=== PATIENT | female | born 1970 | race Caucasian/White ===

== ENCOUNTER 2017-03-15 11:15 | Emergency (ER) | payer MEDICAID ==
[~2017-03-15] VITALS: Ht 167.6 cm; Wt 121.9 kg
[2017-03-15] MEDS ORDERED: FAMOTIDINE 20 MG/2 ML IVP ONE (13:00)
[2017-03-15] MEDS ORDERED: SODIUM CHLORIDE 0.9% 1,000ML IVBOLUS ONE (13:00)
[2017-03-15] MEDS ORDERED: SODIUM CHLORIDE FLUSH 10ML SYR IVF ONE (13:00)
[2017-03-15] MEDS ORDERED: MORPHINE SULFATE 4 MG/ML, 1ML IVPush PRN (13:00)
[2017-03-15] MEDS ORDERED: ONDANSETRON 2MG/ML, 2ML IVPush ONE (13:00)
[2017-03-15] MEDS ORDERED: ONDANSETRON 2MG/ML, 2ML ONE (13:13)
[2017-03-15] MEDS ORDERED: FAMOTIDINE 20 MG/2 ML ONE (13:13)
[2017-03-15] MEDS ORDERED: MORPHINE SULFATE 4 MG/ML, 1ML ONE (13:13)
[2017-03-15 13:17] LABS: PATH.CAST-FLAG NOT PRESENT; SPERM-FLAG NOT PRESENT; SRC-FLAG NOT PRESENT; XTAL-FLAG NOT PRESENT; YLC-FLAG NOT PRESENT
[2017-03-15 13:20] LABS: ASPARTATE AMINO TRANSFERASE 13 U/L (15-37); BLOOD UREA NITROGEN 10 mg/dL (7-18)
[2017-03-15 14:28] VITALS: BP 131/66
== END 2017-03-15 14:31 | disposition home or self-care (01) ==
LOC: ED 13:14
DX: K52.9 Noninfective gastroenteritis and colitis, unspecified (principal); R10.84 Generalized abdominal pain; E11.9 Type 2 diabetes mellitus without complications; Z88.6 Allergy status to analgesic agent; Z88.8 Allergy status to other drugs, medicaments and biological substances
CPT/HCPCS: 36415; 76700; 80053; 81001; 83690; 84703; 85025; 85610; 87324; 89055; 96361; 96374; 96375; 99285; J2405; J7030; S0028

== ENCOUNTER 2017-03-31 16:42 | Inpatient (IN) | payer MEDICAID ==
[~2017-03-31] VITALS: Ht 167.6 cm; Wt 118.6 kg
[2017-03-31] MEDS ORDERED: ACETAMINOPHEN 500 MG TABLET ONE (17:42)
[2017-03-31] MEDS ORDERED: ONDANSETRON 2MG/ML, 2ML ONE ×2 (17:42→20:32)
[2017-03-31] MEDS ORDERED: MORPHINE SULFATE 4 MG/ML, 1ML ONE (17:46)
[2017-03-31] MEDS ORDERED: OMEP40CA6 PO (17:56)
[2017-03-31] MEDS ORDERED: NPH,100V4 SQ (17:56)
[2017-03-31] MEDS ORDERED: ESTR25PO42 PO (17:56)
[2017-03-31] MEDS ORDERED: DICY10CA3 PO (17:56)
[2017-03-31] MEDS ORDERED: ATOR80TA75 PO (17:56)
[2017-03-31] MEDS ORDERED: HYDR25TA6 PO (17:56)
[2017-03-31] MEDS ORDERED: POTA10PI2 PO (17:56)
[2017-03-31] MEDS ORDERED: SODIUM CHLORIDE 0.9% 1,000ML IVBOLUS ONE ×3 (18:00→20:00)
[2017-03-31] MEDS ORDERED: OMNIPAQUE 350 MG/ML, 100ML BOTTLE ONE (18:00)
[2017-03-31] MEDS ORDERED: ACETAMINOPHEN 500 MG TABLET PO ONE (18:00)
[2017-03-31] MEDS ORDERED: ONDANSETRON 2MG/ML, 2ML IVPush ONE (18:00)
[2017-03-31] MEDS ORDERED: SODIUM CHLORIDE FLUSH 10ML SYR IVF ONE (18:00)
[2017-03-31] MEDS ORDERED: MORPHINE SULFATE 4 MG/ML, 1ML IVPush PRN (18:00)
[2017-03-31 18:14] LABS: BLOOD UREA NITROGEN 12 mg/dL (7-18)
[2017-03-31 18:17] LABS: ASPARTATE AMINO TRANSFERASE 11 U/L (15-37)
[2017-03-31] MEDS ORDERED: SODIUM CHLORIDE 0.9% 1,000 ML IV ONE (21:37)
[2017-03-31] MEDS ORDERED: METRONIDAZOLE PMX 500MG/100ML 100 ML IV ONE (22:00)
[2017-03-31] MEDS ORDERED: ONDANSETRON 2MG/ML, 2ML IVPush PRN (22:00)
[2017-03-31] MEDS: METRONIDAZOLE PMX 500MG/100ML 100 ML IV SCH (22:30)
[2017-03-31] MEDS ORDERED: ENALAPRILAT 1.25 MG/ML, 2ML IVPush PRN (22:30)
[2017-03-31] MEDS ORDERED: ACETAMINOPHEN 325 MG TABLET PO PRN (22:30)
[2017-03-31] MEDS ORDERED: POLYETHYLENE GLYCOL 17 GM PACKET PO PRN (22:30)
[2017-03-31] MEDS ORDERED: BISACODYL 10 MG SUPP PR PRN (22:30)
[2017-03-31] MEDS ORDERED: TEMAZEPAM 15 MG CAPSULE PO PRN (22:30)
[2017-03-31] MEDS ORDERED: DOCUSATE 100 MG CAPSULE PO PRN (22:30)
[2017-03-31 23:24] VITALS: BP 101/54
[2017-03-31] MEDS: SODIUM CHLORIDE 0.9% 1,000 ML IV SCH (23:40)
[2017-03-31] MEDS: ONDANSETRON 2MG/ML, 2ML IVPush PRN (23:40)
[2017-04-01] MEDS: HEPARIN 5,000 UNITS/ML, 1ML SQ SCH ×4 (02:05→23:23)
[2017-04-01] MEDS: VANCOMYCIN 50 MG/ML ORAL SUSP PO SCH ×4 (02:20→20:33)
[2017-04-01 02:24] VITALS: BP 119/71
[2017-04-01 05:03] LABS: BLOOD UREA NITROGEN 9 mg/dL (7-18)
[2017-04-01 05:09] LABS: ASPARTATE AMINO TRANSFERASE 10 U/L (15-37)
[2017-04-01 05:46] LABS: DIFF TOTAL CELLS COUNTED 100 CELL DIFF
[2017-04-01] MEDS: SODIUM CHLORIDE 0.9% 1,000 ML IV SCH (05:48)
[2017-04-01 05:58] LABS: VERIFY COUNTS? YES
[2017-04-01] MEDS: METRONIDAZOLE PMX 500MG/100ML 100 ML IV SCH ×3 (06:42→23:22)
[2017-04-01 06:56] VITALS: BP 122/74
[2017-04-01] MEDS: INSULIN ASPART 100 UNITS/ML, PEN SQ-INSULIN SCH ×4 (07:00→20:36)
[2017-04-01] MEDS: HYDROCHLOROTHIAZIDE 25 MG TABLET PO SCH (08:41)
[2017-04-01] MEDS ORDERED: MAGNESIUM SULFATE PMX 2GM/50ML 50 ML IV ONE (09:30)
[2017-04-01] MEDS ORDERED: NS + 20MEQ KCL 1,000 ML IV SCH (09:30)
[2017-04-01 12:57] VITALS: BP 110/71
[2017-04-01] MEDS: morphine SULFATE 10 MG/ML, 1ML IVPush PRN (14:51)
[2017-04-01 19:02] VITALS: BP 117/70
[2017-04-01] MEDS: ONDANSETRON 2MG/ML, 2ML IVPush PRN (20:31)
[2017-04-01] MEDS: OXYcodone IR 5MG TABLET PO PRN (20:33)
[2017-04-01] MEDS: ATORVASTATIN 20 MG TABLET PO SCH (20:33)
[2017-04-01] MEDS: NS + 20MEQ KCL 1,000 ML IV SCH (23:23)
[2017-04-02 01:53] VITALS: BP 116/73
[2017-04-02] MEDS: VANCOMYCIN 50 MG/ML ORAL SUSP PO SCH ×4 (02:50→20:26)
[2017-04-02] MEDS: ONDANSETRON 2MG/ML, 2ML IVPush PRN (04:53)
[2017-04-02] MEDS ORDERED: MORPHINE SULFATE 4 MG/ML, 1ML ONE (05:11)
[2017-04-02] MEDS: morphine SULFATE 10 MG/ML, 1ML IVPush PRN ×2 (05:16→13:13)
[2017-04-02 05:58] LABS: ASPARTATE AMINO TRANSFERASE 9 U/L (15-37); BLOOD UREA NITROGEN 5 mg/dL (7-18)
[2017-04-02 07:05] VITALS: BP 104/66
[2017-04-02] MEDS: METRONIDAZOLE PMX 500MG/100ML 100 ML IV SCH ×3 (08:31→23:58)
[2017-04-02] MEDS: HEPARIN 5,000 UNITS/ML, 1ML SQ SCH ×3 (08:31→23:58)
[2017-04-02] MEDS: HYDROCHLOROTHIAZIDE 25 MG TABLET PO SCH (08:31)
[2017-04-02] MEDS: INSULIN ASPART 100 UNITS/ML, PEN SQ-INSULIN SCH ×4 (09:11→20:01)
[2017-04-02 13:05] VITALS: BP 111/76
[2017-04-02] MEDS: NS + 20MEQ KCL 1,000 ML IV SCH (13:41)
[2017-04-02] MEDS ORDERED: POTASSIUM CHLORIDE 20 MEQ TAB.ER.PRT PO ONE (14:30)
[2017-04-02] MEDS ORDERED: PROMETHAZINE 25MG TABLET PO PRN (14:30)
[2017-04-02] MEDS ORDERED: MAGNESIUM SULFATE PMX 2GM/50ML 50 ML IV ONE (14:30)
[2017-04-02] MEDS: ONDANSETRON 2MG/ML, 2ML IVPush SCH ×3 (16:42→23:56)
[2017-04-02] MEDS: OXYcodone IR 5MG TABLET PO PRN (19:39)
[2017-04-02 20:00] VITALS: BP 123/70
[2017-04-02] MEDS: ATORVASTATIN 20 MG TABLET PO SCH (20:26)
[2017-04-03] MEDS ORDERED: MORPHINE SULFATE 4 MG/ML, 1ML ONE ×2 (01:23→20:38)
[2017-04-03 02:00] VITALS: BP 107/67
[2017-04-03] MEDS: morphine SULFATE 10 MG/ML, 1ML IVPush PRN ×4 (02:30→20:48)
[2017-04-03] MEDS: VANCOMYCIN 50 MG/ML ORAL SUSP PO SCH ×4 (03:17→20:47)
[2017-04-03] MEDS: NS + 20MEQ KCL 1,000 ML IV SCH ×2 (03:17→23:00)
[2017-04-03] MEDS: ONDANSETRON 2MG/ML, 2ML IVPush SCH ×4 (04:53→21:37)
[2017-04-03 05:49] LABS: BLOOD UREA NITROGEN 4 mg/dL (7-18)
[2017-04-03 08:09] VITALS: BP 134/73
[2017-04-03] MEDS: HEPARIN 5,000 UNITS/ML, 1ML SQ SCH ×2 (08:18→15:12)
[2017-04-03] MEDS: HYDROCHLOROTHIAZIDE 25 MG TABLET PO SCH (08:18)
[2017-04-03] MEDS: METRONIDAZOLE PMX 500MG/100ML 100 ML IV SCH ×2 (08:18→17:13)
[2017-04-03] MEDS: INSULIN ASPART 100 UNITS/ML, PEN SQ-INSULIN SCH ×4 (08:19→21:37)
[2017-04-03] MEDS ORDERED: POTASSIUM CHLORIDE 40 MEQ in SODIUM CHLORIDE 0.9% 500 ML IV ONE (10:30)
[2017-04-03 13:34] VITALS: BP 117/75
[2017-04-03 19:19] VITALS: BP 114/71
[2017-04-03] MEDS: ATORVASTATIN 20 MG TABLET PO SCH (20:47)
[2017-04-04 02:00] VITALS: BP 107/68
[2017-04-04] MEDS ORDERED: MORPHINE SULFATE 4 MG/ML, 1ML ONE (02:55)
[2017-04-04] MEDS: ONDANSETRON 2MG/ML, 2ML IVPush SCH ×4 (03:05→22:30)
[2017-04-04] MEDS: morphine SULFATE 10 MG/ML, 1ML IVPush PRN ×2 (03:05→17:25)
[2017-04-04] MEDS: HEPARIN 5,000 UNITS/ML, 1ML SQ SCH ×3 (03:05→20:56)
[2017-04-04] MEDS: METRONIDAZOLE PMX 500MG/100ML 100 ML IV SCH ×3 (03:05→19:06)
[2017-04-04] MEDS: VANCOMYCIN 50 MG/ML ORAL SUSP PO SCH ×4 (03:05→20:56)
[2017-04-04 06:01] LABS: BLOOD UREA NITROGEN 5 mg/dL (7-18)
[2017-04-04 06:05] LABS: ASPARTATE AMINO TRANSFERASE 27 U/L (15-37)
[2017-04-04 07:37] VITALS: BP 124/75
[2017-04-04] MEDS: INSULIN ASPART 100 UNITS/ML, PEN SQ-INSULIN SCH ×4 (08:24→20:57)
[2017-04-04] MEDS: HYDROCHLOROTHIAZIDE 25 MG TABLET PO SCH (09:04)
[2017-04-04] MEDS ORDERED: MAGNESIUM SULFATE PMX 2GM/50ML 50 ML IV ONE (10:30)
[2017-04-04] MEDS ORDERED: POTASSIUM CHLORIDE 40 MEQ in SODIUM CHLORIDE 0.9% 500 ML IV ONE (10:30)
[2017-04-04] MEDS: INSULIN DETEMIR 100 UNITS/ML, PEN SQ-INSULIN SCH (11:56)
[2017-04-04 13:35] VITALS: BP 126/81
[2017-04-04] MEDS: OXYcodone IR 5MG TABLET PO PRN ×2 (18:37→19:14)
[2017-04-04 19:14] VITALS: BP 130/65
[2017-04-04] MEDS: ATORVASTATIN 20 MG TABLET PO SCH (20:56)
[2017-04-05 02:00] VITALS: BP 124/78
[2017-04-05] MEDS: HEPARIN 5,000 UNITS/ML, 1ML SQ SCH ×3 (02:27→17:30)
[2017-04-05] MEDS ORDERED: MORPHINE SULFATE 4 MG/ML, 1ML ONE (02:28)
[2017-04-05] MEDS: METRONIDAZOLE PMX 500MG/100ML 100 ML IV SCH ×3 (02:33→17:30)
[2017-04-05] MEDS: VANCOMYCIN 50 MG/ML ORAL SUSP PO SCH ×4 (02:33→20:30)
[2017-04-05] MEDS: ONDANSETRON 2MG/ML, 2ML IVPush SCH ×4 (02:34→20:30)
[2017-04-05] MEDS: morphine SULFATE 10 MG/ML, 1ML IVPush PRN (02:34)
[2017-04-05 05:41] LABS: BLOOD UREA NITROGEN 5 mg/dL (7-18)
[2017-04-05 07:29] VITALS: BP 113/72
[2017-04-05] MEDS: HYDROCHLOROTHIAZIDE 25 MG TABLET PO SCH (09:02)
[2017-04-05] MEDS: INSULIN DETEMIR 100 UNITS/ML, PEN SQ-INSULIN SCH (09:02)
[2017-04-05] MEDS: INSULIN ASPART 100 UNITS/ML, PEN SQ-INSULIN SCH ×4 (09:03→20:30)
[2017-04-05 13:50] VITALS: BP 132/70
[2017-04-05] MEDS: OXYcodone IR 5MG TABLET PO PRN (15:02)
[2017-04-05] MEDS ORDERED: MAGNESIUM SULFATE PMX 2GM/50ML 50 ML IV ONE (17:30)
[2017-04-05] MEDS: POTASSIUM CHLORIDE 40 MEQ in SODIUM CHLORIDE 0.9% 500 ML IV ONE ×2 (18:17→23:22)
[2017-04-05 19:18] VITALS: BP 108/68
[2017-04-05] MEDS: ATORVASTATIN 20 MG TABLET PO SCH (20:30)
[2017-04-06] MEDS: METRONIDAZOLE PMX 500MG/100ML 100 ML IV SCH ×3 (01:39→16:39)
[2017-04-06 02:29] VITALS: BP 130/81
[2017-04-06] MEDS: VANCOMYCIN 50 MG/ML ORAL SUSP PO SCH ×4 (03:41→21:31)
[2017-04-06] MEDS: HEPARIN 5,000 UNITS/ML, 1ML SQ SCH ×3 (03:41→17:58)
[2017-04-06] MEDS: ONDANSETRON 2MG/ML, 2ML IVPush SCH ×4 (03:42→21:31)
[2017-04-06 05:29] LABS: BLOOD UREA NITROGEN 6 mg/dL (7-18)
[2017-04-06 07:36] VITALS: BP 125/76
[2017-04-06] MEDS: HYDROCHLOROTHIAZIDE 25 MG TABLET PO SCH (08:05)
[2017-04-06] MEDS: INSULIN DETEMIR 100 UNITS/ML, PEN SQ-INSULIN SCH (08:06)
[2017-04-06] MEDS: INSULIN ASPART 100 UNITS/ML, PEN SQ-INSULIN SCH ×4 (08:06→21:32)
[2017-04-06] MEDS ORDERED: MORPHINE SULFATE 4 MG/ML, 1ML ONE ×2 (08:12→11:21)
[2017-04-06] MEDS: morphine SULFATE 10 MG/ML, 1ML IVPush PRN ×2 (08:14→11:24)
[2017-04-06] MEDS: OXYcodone IR 5MG TABLET PO PRN ×3 (10:36→21:38)
[2017-04-06 14:30] VITALS: BP 117/70
[2017-04-06] MEDS ORDERED: OMNIPAQUE 350 MG/ML, 150 ML BOTTLE ONE (15:00)
[2017-04-06 19:51] VITALS: BP 116/73
[2017-04-06] MEDS: ATORVASTATIN 20 MG TABLET PO SCH (21:31)
[2017-04-07] MEDS ORDERED: MORPHINE SULFATE 4 MG/ML, 1ML ONE (00:58)
[2017-04-07] MEDS: morphine SULFATE 10 MG/ML, 1ML IVPush PRN (01:03)
[2017-04-07] MEDS: METRONIDAZOLE PMX 500MG/100ML 100 ML IV SCH ×3 (01:07→17:04)
[2017-04-07 01:09] VITALS: BP 129/76
[2017-04-07] MEDS: ONDANSETRON 2MG/ML, 2ML IVPush SCH ×4 (03:37→20:32)
[2017-04-07] MEDS: VANCOMYCIN 50 MG/ML ORAL SUSP PO SCH ×4 (03:37→20:32)
[2017-04-07] MEDS: HEPARIN 5,000 UNITS/ML, 1ML SQ SCH ×3 (03:38→17:40)
[2017-04-07 06:08] LABS: BLOOD UREA NITROGEN 7 mg/dL (7-18)
[2017-04-07 08:00] VITALS: BP 120/74
[2017-04-07] MEDS: HYDROCHLOROTHIAZIDE 25 MG TABLET PO SCH (08:40)
[2017-04-07] MEDS: INSULIN ASPART 100 UNITS/ML, PEN SQ-INSULIN SCH ×4 (08:41→20:32)
[2017-04-07] MEDS: INSULIN DETEMIR 100 UNITS/ML, PEN SQ-INSULIN SCH (08:42)
[2017-04-07] MEDS: OXYcodone IR 5MG TABLET PO PRN (11:36)
[2017-04-07 16:00] VITALS: BP 112/74
[2017-04-07 18:54] VITALS: BP 116/77
[2017-04-07] MEDS: ATORVASTATIN 20 MG TABLET PO SCH (20:32)
[2017-04-08 02:03] VITALS: BP 123/82
[2017-04-08] MEDS: VANCOMYCIN 50 MG/ML ORAL SUSP PO SCH ×2 (02:04→08:17)
[2017-04-08] MEDS: METRONIDAZOLE PMX 500MG/100ML 100 ML IV SCH ×2 (02:04→10:35)
[2017-04-08] MEDS: ONDANSETRON 2MG/ML, 2ML IVPush SCH ×2 (02:04→08:17)
[2017-04-08] MEDS: HEPARIN 5,000 UNITS/ML, 1ML SQ SCH ×2 (02:04→10:35)
[2017-04-08 07:44] VITALS: BP 119/79
[2017-04-08] MEDS: INSULIN ASPART 100 UNITS/ML, PEN SQ-INSULIN SCH ×2 (08:17→12:13)
[2017-04-08] MEDS: HYDROCHLOROTHIAZIDE 25 MG TABLET PO SCH (08:17)
[2017-04-08] MEDS: INSULIN DETEMIR 100 UNITS/ML, PEN SQ-INSULIN SCH (08:17)
[2017-04-08] MEDS ORDERED: OMEPRAZOLE 20 MG CAPSULE.DR PO SCH (08:30)
[2017-04-08] MEDS ORDERED: VANC1VIA3 PO (10:04)
[2017-04-08] MEDS ORDERED: OXYC5TAB3 PO (10:04)
[2017-04-08] MEDS ORDERED: SUCRALFATE 1 GM/10 ML UDC PO SCH (11:00)
== END 2017-04-08 13:06 | disposition home or self-care (01) | DRG 872 ==
LOC: ED 18:11 → EDIP 21:37 → 4EST 22:32
PROVIDERS: ADMIT Internal Medicine; ATTEND Internal Medicine
DX: A41.9 Sepsis, unspecified organism (principal); A04.7 Enterocolitis due to Clostridium difficile; Z68.41 Body mass index [BMI] 40.0-44.9, adult; E11.9 Type 2 diabetes mellitus without complications; E78.5 Hyperlipidemia, unspecified; E83.42 Hypomagnesemia; E87.6 Hypokalemia; H81.09 Meniere's disease, unspecified ear; I10 Essential (primary) hypertension; K21.9 Gastro-esophageal reflux disease without esophagitis; K76.0 Fatty (change of) liver, not elsewhere classified; M51.36 Other intervertebral disc degeneration, lumbar region; E66.01 Morbid (severe) obesity due to excess calories; R16.0 Hepatomegaly, not elsewhere classified; Z90.710 Acquired absence of both cervix and uterus; Z83.1 Family history of other infectious and parasitic diseases; Z88.6 Allergy status to analgesic agent; Z88.8 Allergy status to other drugs, medicaments and biological substances; Z79.4 Long term (current) use of insulin; Z79.899 Other long term (current) drug therapy
CPT/HCPCS: 36415; 74177; 80048; 80053; 80061; 81003; 82010; 82962; 83036; 83605; 83690; 83735; 84100; 84145; 84439; 84443; 85025; 87040; 87324; 89055; 96361; 96374; J1644; J1815; J2405; J3370; J3480; Q0169; Q9967; J2270; J3475; J7030; J7040

== ENCOUNTER 2017-04-17 19:11 | Emergency (ER) | payer MEDICAID ==
[~2017-04-17] VITALS: Ht 182.9 cm; Wt 117.9 kg
[~2017-04-17 19:11] MED LIST: ATOR80TA75 PO; DICY10CA3 PO; ESTR25PO42 PO; HYDR25TA6 PO; NPH,100V4 SQ; OMEP40CA6 PO; OXYC5TAB3 PO; POTA10PI2 PO; VANC1VIA3 PO
[2017-04-17] MEDS ORDERED: SODIUM CHLORIDE 0.9% 1,000ML IVBOLUS ONE (20:00)
[2017-04-17] MEDS ORDERED: SODIUM CHLORIDE FLUSH 10ML SYR IVF ONE (20:00)
[2017-04-17] MEDS ORDERED: ONDANSETRON 2MG/ML, 2ML IVPush ONE (20:00)
[2017-04-17] MEDS ORDERED: ALBU18HF INH (20:10)
[2017-04-17] MEDS ORDERED: DICY10CA3 PO (20:10)
[2017-04-17] MEDS ORDERED: MORPHINE SULFATE 4 MG/ML, 1ML ONE (20:15)
[2017-04-17] MEDS ORDERED: ONDANSETRON 2MG/ML, 2ML ONE (20:16)
[2017-04-17] MEDS ORDERED: MORPHINE SULFATE 4 MG/ML, 1ML IVPush ONE (20:30)
[2017-04-17 20:58] LABS: ASPARTATE AMINO TRANSFERASE 23 U/L (15-37); BLOOD UREA NITROGEN 14 mg/dL (7-18)
[2017-04-17 22:05] VITALS: BP 113/64
== END 2017-04-17 22:19 | disposition home or self-care (01) ==
LOC: ED 22:17
DX: R19.7 Diarrhea, unspecified (principal); R10.84 Generalized abdominal pain; Z88.8 Allergy status to other drugs, medicaments and biological substances; E78.5 Hyperlipidemia, unspecified; I10 Essential (primary) hypertension; J45.909 Unspecified asthma, uncomplicated; E11.9 Type 2 diabetes mellitus without complications; Z79.899 Other long term (current) drug therapy; Z79.4 Long term (current) use of insulin; K21.9 Gastro-esophageal reflux disease without esophagitis
CPT/HCPCS: 36415; 80053; 81003; 83605; 83690; 85025; 87040; 87324; 89055; 96374; 96375; 99284; J2405; J7030; 96361

== ENCOUNTER 2018-05-08 10:40 | Emergency (ER) | payer MEDICAID, OTHER ==
[~2018-05-08] VITALS: Ht 167.6 cm; Wt 136.0 kg
[~2018-05-08 10:40] MED LIST changes: +ALBU18HF INH; +ATOR-2 PO; -ATOR80TA75 PO; -NPH,100V4 SQ; +NPH,100V5 SQ
[2018-05-08] MEDS ORDERED: ONDANSETRON 2MG/ML, 2ML ONE (11:17)
[2018-05-08] MEDS ORDERED: DIAZEPAM 5 MG TABLET ONE (11:18)
[2018-05-08] MEDS ORDERED: MORPHINE SULFATE 4 MG/ML, 1ML ONE (11:18)
[2018-05-08] MEDS ORDERED: ONDANSETRON 2MG/ML, 2ML IVPush ONE (11:30)
[2018-05-08] MEDS ORDERED: SODIUM CHLORIDE FLUSH 10ML SYR IVF ONE (11:30)
[2018-05-08] MEDS ORDERED: DIAZEPAM 5 MG/ML, 2ML IVPush ONE (11:30)
[2018-05-08] MEDS ORDERED: MORPHINE SULFATE 4 MG/ML, 1ML IVPush PRN (11:30)
[2018-05-08] MEDS ORDERED: DIAZEPAM 5 MG TABLET PO ONE (13:00)
[2018-05-08 13:16] VITALS: BP 114/55
== END 2018-05-08 13:21 | disposition home or self-care (01) ==
LOC: ED 12:54
DX: S39.012A Strain of muscle, fascia and tendon of lower back, initial encounter (principal); I10 Essential (primary) hypertension; E11.9 Type 2 diabetes mellitus without complications; X58.XXXA Exposure to other specified factors, initial encounter; Y93.89 Activity, other specified; Y99.8 Other external cause status; Y92.89 Other specified places as the place of occurrence of the external cause
CPT/HCPCS: 72110; 96374; 96375; 99284; J2405

== ENCOUNTER 2018-07-13 12:12 | Emergency (ER) | payer OTHER ==
[~2018-07-13] VITALS: Ht 167.6 cm; Wt 131.8 kg
[2018-07-13 12:19] VITALS: BP 157/87
[2018-07-13] MEDS ORDERED: OXYcodone/APAP 5/325MG TABLET ONE (13:00)
[2018-07-13] MEDS ORDERED: KETOROLAC 30 MG/1 ML ONE (13:00)
[2018-07-13] MEDS ORDERED: OXYcodone/APAP 5/325MG TABLET PO ONE (13:00)
[2018-07-13] MEDS ORDERED: KETOROLAC 30 MG/1 ML IM ONE (13:00)
== END 2018-07-13 13:17 | disposition home or self-care (01) ==
LOC: ED 13:10
DX: M75.32 Calcific tendinitis of left shoulder (principal); E78.5 Hyperlipidemia, unspecified; E11.9 Type 2 diabetes mellitus without complications; J45.909 Unspecified asthma, uncomplicated
CPT/HCPCS: 96372; 99283; J1885

== ENCOUNTER → 2018-10-08 | Outpatient (CLI) | payer OTHER | END | disposition home or self-care (01) | LOC: RAD 07:25 | PROVIDERS: ATTEND Physician Assistant Surgical | DX: S83.241A Other tear of medial meniscus, current injury, right knee, initial encounter (principal); M25.461 Effusion, right knee; X58.XXXA Exposure to other specified factors, initial encounter; Y93.89 Activity, other specified; Y92.89 Other specified places as the place of occurrence of the external cause; Y99.8 Other external cause status ==

== ENCOUNTER 2019-04-09 10:01 | Inpatient (IN) | payer OTHER ==
[~2019-04-09] VITALS: Ht 170.2 cm; Wt 137.2 kg
--- NOTE | 2019-04-09 10:34 | NUR ---
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
[2019-04-09 11:15] LABS: BASOPHILS % (AUTO) 0 % (0-1); EOSINOPHILS # (AUTO) 0.03 x10^3/uL (0-0.4); EOSINOPHILS % (AUTO) 0 % (1-7); LYMPHOCYTES # (AUTO) 1.32 x10^3/uL (1-3.4); LYMPHOCYTES % (AUTO) 15 % (22-44); MD NO; MEAN CORPUSCULAR HEMOGLOBIN 29.7 pg (27.0-34.8); MEAN CORPUSCULAR HGB CONC 32.5 g/dL (32.4-35.8); MEAN CORPUSCULAR VOLUME 91.5 fL (80-100); MEAN PLATELET VOLUME 7.7 fL (7.4-10.4); MONOCYTES # (AUTO) 0.31 x10^3/uL (0.2-0.8); MONOCYTES % (AUTO) 4 % (2-9); NEUTROPHILS # (AUTO) 7.29 x10^3/uL (1.8-6.8); NEUTROPHILS % (AUTO) 81 % (42-75); PLATELET COUNT 275 x10^3/uL (130-400); RED BLOOD COUNT 4.72 x10^6/uL (3.82-5.3); RED CELL DISTRIBUTION WIDTH 13.6 % (9.6-15.2)
[2019-04-09 11:28] LABS: CHLORIDE 105 mmol/L (98-107)
--- NOTE | 2019-04-09 12:00 | NUR ---
PT REPORTS SOB THAT STARTED 04/03 AND GOT BETTER OVER THE FOLLOWING DAYS THEN WORSE ON 04/08. PT WENT TO PRIMARY CARE AND REVIECED A NEB TREATMENT WHICH MADE HER BREATHING BETTER BUT ONLY FOR A SHORT PERIOD OF TIME. PT REPORTS SHE WOKE UP THIS MORNING AT 3AM AND HAD COUGHING. SHE TOOK A PUFF OF HER INHALER WHICH DID NOT HELP. SHE WENT TO URGENT CARE WHERE SHE RECIEVED A SHOT OF PREDNISONE WHICH ALSO DID NOT HELP. UC SENT HER TO EMERGENCY WHERE SHE CONTINUES TO HAVE SHORTNESS OF BREATH.
[2019-04-09 12:11] LABS: ALANINE AMINOTRANSFERASE 52 U/L (12-78); ALBUMIN 3.2 g/dL (3.4-5.0); ALKALINE PHOSPHATASE 60 U/L (45-117); ANION GAP 11 mmol/L (5-15); BILIRUBIN,TOTAL 0.4 mg/dL (0.2-1.0); CALCIUM 8.4 mg/dL (8.5-10.1); CREATININE 0.91 mg/dL (0.55-1.02); TOTAL PROTEIN 6.5 g/dL (6.4-8.2)
[2019-04-09] MEDS ORDERED: POTASSIUM PO (12:23)
[2019-04-09] MEDS ORDERED: INSU100I13 SQ (12:23)
[2019-04-09] MEDS ORDERED: INSU100I11 SQ (12:23)
--- NOTE | 2019-04-09 12:51 | NUR ---
PT TO CT
[2019-04-09] MEDS ORDERED: INSULIN LISPRO 100 UNITS/ML, PEN SQ-INSULIN ONE (13:00)
--- NOTE | 2019-04-09 13:08 | NUR ---
WILLIS FROM CT CALLED AND SAID THE PIV INFILTRATED AND SHE WAS NOT ABLE TO COMPLETE THE CT WITH CONTRAST. BOWEND NOTIFIED. HUMALOG INSULIN WAS RECIEVED FROM PHARMACY AT THIS TIME.
--- NOTE | 2019-04-09 13:22 | NUR ---
LOLA EL FIXED IV-HAVE ANOTHER PT NOW, WILL GET THIS ONE NEXT
--- NOTE | 2019-04-09 13:28 | NUR ---
PT GIVEN INSULIN. WILL RECHECK BG. PT'S IV TUBING REPLACED AND CT NOTIFIED OF NEED FOR ANOTHER CT ATTEMPT.
[2019-04-09] MEDS ORDERED: OMNIPAQUE 350 MG/ML, 150 ML BOTTLE ONE (14:18)
[2019-04-09] MEDS ORDERED: AZITHROMYCIN 500 MG in SODIUM CHLORIDE 0.9% 250 ML IV ONE (15:00)
[2019-04-09] MEDS ORDERED: INSULIN REGULAR 100 UNITS/ML, 3ML VIAL IVPush ONE (15:00)
[2019-04-09] MEDS ORDERED: INSULIN LISPRO 100 UNITS/ML, PEN ONE (15:16)
[2019-04-09] MEDS ORDERED: ACETAMINOPHEN 500 MG TABLET ONE (15:18)
[2019-04-09] MEDS ORDERED: ACETAMINOPHEN 500 MG TABLET PO ONE (15:30)
[2019-04-09] MEDS ORDERED: SODIUM CHLORIDE 0.9%, 500ML IVBOLUS ONE (16:00)
[2019-04-09] MEDS ORDERED: ONDANSETRON 2MG/ML, 2ML IVPush PRN (16:30)
[2019-04-09] MEDS ORDERED: ACETAMINOPHEN 325 MG TABLET PO PRN (16:30)
[2019-04-09] MEDS ORDERED: ONDANSETRON ODT 4 MG PO PRN (16:30)
[2019-04-09] MEDS ORDERED: ALBUTEROL SULFATE INH PRN (16:30)
--- NOTE | 2019-04-09 16:38 | NUR ---
REPORT GIVEN TO CANDIS
[2019-04-09 17:20] VITALS: BP 155/88
[2019-04-09] MEDS: SODIUM CHLORIDE 0.9% 1,000 ML IV SCH (17:36)
[2019-04-09] MEDS: HEPARIN 5,000 UNITS/ML, 1ML SQ SCH (18:05)
[2019-04-09] MEDS: CARVEDILOL 6.25 MG TABLET PO SCH (18:05)
[2019-04-09] MEDS: LACTOBACILLUS CHEW TABLET PO SCH (18:05)
[2019-04-09] MEDS: CEFTRIAXONE PMX 2GM/50ML 50 ML IV SCH (18:06)
[2019-04-09 20:09] VITALS: BP 126/75
[2019-04-09] MEDS: INSULIN NPH HUMAN 100 UNIT/ML, 3ML VIAL SQ-INSULIN SCH (20:55)
[2019-04-09] MEDS: ATORVASTATIN 20 MG TABLET PO SCH (20:55)
[2019-04-09] MEDS: POTASSIUM CHLORIDE 10 MEQ TABLET.ER PO SCH (20:55)
[2019-04-09] MEDS: INSULIN LISPRO 100 UNITS/ML, PEN SQ-INSULIN SCH (20:56)
[2019-04-10] MEDS: HEPARIN 5,000 UNITS/ML, 1ML SQ SCH ×3 (01:46→17:54)
[2019-04-10] MEDS: GUAIFENESIN/DM 200-20MG, 10ML UDC PO PRN ×4 (01:46→22:59)
[2019-04-10 02:34] VITALS: BP 127/74
[2019-04-10 05:30] LABS: BASOPHILS # (AUTO) 0.03 x10^3/uL (0-0.1); BASOPHILS % (AUTO) 0 % (0-1); EOSINOPHILS # (AUTO) 0.02 x10^3/uL (0-0.4); EOSINOPHILS % (AUTO) 0 % (1-7); LYMPHOCYTES # (AUTO) 1.98 x10^3/uL (1-3.4); LYMPHOCYTES % (AUTO) 17 % (22-44); MD NO; MEAN CORPUSCULAR HEMOGLOBIN 30.4 pg (27.0-34.8); MEAN CORPUSCULAR HGB CONC 32.8 g/dL (32.4-35.8); MEAN CORPUSCULAR VOLUME 92.5 fL (80-100); MEAN PLATELET VOLUME 7.8 fL (7.4-10.4); MONOCYTES # (AUTO) 1.03 x10^3/uL (0.2-0.8); MONOCYTES % (AUTO) 9 % (2-9); NEUTROPHILS # (AUTO) 8.63 x10^3/uL (1.8-6.8); NEUTROPHILS % (AUTO) 74 % (42-75); PLATELET COUNT 304 x10^3/uL (130-400); RED BLOOD COUNT 4.52 x10^6/uL (3.82-5.3); RED CELL DISTRIBUTION WIDTH 13.9 % (9.6-15.2)
[2019-04-10 05:37] LABS: ANION GAP 7 mmol/L (5-15); CALCIUM 8.2 mg/dL (8.5-10.1); CHLORIDE 106 mmol/L (98-107)
[2019-04-10 05:38] LABS: CREATININE 0.78 mg/dL (0.55-1.02)
[2019-04-10 05:41] LABS: HEMOGLOBIN A1C 8.7 % (4.2-6.3)
[2019-04-10] MEDS: CARVEDILOL 6.25 MG TABLET PO SCH ×2 (05:48→17:53)
[2019-04-10] MEDS: OMEPRAZOLE 20 MG CAPSULE.DR PO SCH (05:48)
[2019-04-10] MEDS: INSULIN LISPRO 100 UNITS/ML, PEN SQ-INSULIN SCH ×4 (06:31→22:57)
[2019-04-10 08:20] VITALS: BP 118/73
[2019-04-10] MEDS: INSULIN GLARGINE 100 UNITS/ML, PEN SQ-INSULIN SCH (09:00)
[2019-04-10] MEDS: POTASSIUM CHLORIDE 10 MEQ TABLET.ER PO SCH ×2 (09:25→22:50)
[2019-04-10] MEDS: LACTOBACILLUS CHEW TABLET PO SCH ×3 (09:25→17:53)
[2019-04-10] MEDS: INSULIN NPH HUMAN 100 UNIT/ML, 3ML VIAL SQ-INSULIN SCH ×2 (09:26→21:00)
[2019-04-10] MEDS: ESTRADIOL 1 MG TABLET PO SCH (09:34)
[2019-04-10] MEDS: SODIUM CHLORIDE 0.9% 1,000 ML IV SCH (11:59)
[2019-04-10 14:49] VITALS: BP 135/71
[2019-04-10] MEDS: CEFTRIAXONE PMX 2GM/50ML 50 ML IV SCH (17:54)
[2019-04-10 19:13] VITALS: BP 127/80
[2019-04-10] MEDS ORDERED: KETOROLAC 30 MG/1 ML IVPush SCH (21:30)
[2019-04-10] MEDS: ATORVASTATIN 20 MG TABLET PO SCH (22:50)
[2019-04-11] MEDS: SODIUM CHLORIDE 0.9% 1,000 ML IV SCH ×2 (02:15→16:43)
[2019-04-11] MEDS: HEPARIN 5,000 UNITS/ML, 1ML SQ SCH ×3 (02:16→17:28)
[2019-04-11 02:22] VITALS: BP 130/76
[2019-04-11 05:47] LABS: BASOPHILS # (AUTO) 0.04 x10^3/uL (0-0.1); BASOPHILS % (AUTO) 1 % (0-1); EOSINOPHILS # (AUTO) 0.21 x10^3/uL (0-0.4); EOSINOPHILS % (AUTO) 3 % (1-7); LYMPHOCYTES # (AUTO) 2.61 x10^3/uL (1-3.4); LYMPHOCYTES % (AUTO) 35 % (22-44); MD NO; MEAN CORPUSCULAR HEMOGLOBIN 30.2 pg (27.0-34.8); MEAN CORPUSCULAR HGB CONC 32.7 g/dL (32.4-35.8); MEAN CORPUSCULAR VOLUME 92.2 fL (80-100); MEAN PLATELET VOLUME 7.8 fL (7.4-10.4); MONOCYTES % (AUTO) 9 % (2-9); NEUTROPHILS # (AUTO) 3.91 x10^3/uL (1.8-6.8); NEUTROPHILS % (AUTO) 52 % (42-75); PLATELET COUNT 251 x10^3/uL (130-400); RED BLOOD COUNT 4.36 x10^6/uL (3.82-5.3)
[2019-04-11] MEDS: OMEPRAZOLE 20 MG CAPSULE.DR PO SCH (06:05)
[2019-04-11] MEDS: CARVEDILOL 6.25 MG TABLET PO SCH ×2 (06:05→17:27)
[2019-04-11 09:24] VITALS: BP 134/72
[2019-04-11] MEDS: INSULIN LISPRO 100 UNITS/ML, PEN SQ-INSULIN SCH ×4 (09:41→21:36)
[2019-04-11] MEDS: LACTOBACILLUS CHEW TABLET PO SCH ×3 (09:42→17:27)
[2019-04-11] MEDS: KETOROLAC 30 MG/1 ML IVPush PRN ×3 (09:42→22:07)
[2019-04-11] MEDS: INSULIN GLARGINE 100 UNITS/ML, PEN SQ-INSULIN SCH (09:42)
[2019-04-11] MEDS: POTASSIUM CHLORIDE 10 MEQ TABLET.ER PO SCH ×2 (09:43→21:37)
[2019-04-11] MEDS: GUAIFENESIN/DM 200-20MG, 10ML UDC PO PRN ×3 (09:46→22:07)
[2019-04-11] MEDS: ESTRADIOL 1 MG TABLET PO SCH (09:49)
[2019-04-11 14:14] VITALS: BP 130/69
[2019-04-11 19:32] VITALS: BP 130/69
[2019-04-11] MEDS: AMOXICILLIN 500 MG CAPSULE PO SCH (21:36)
[2019-04-11] MEDS: ATORVASTATIN 20 MG TABLET PO SCH (21:37)
[2019-04-11] MEDS: DOXYCYCLINE 100MG CAP PO SCH (21:37)
[2019-04-12 00:52] VITALS: BP 129/77
[2019-04-12] MEDS: HEPARIN 5,000 UNITS/ML, 1ML SQ SCH ×2 (01:30→10:36)
[2019-04-12] MEDS: GUAIFENESIN/DM 200-20MG, 10ML UDC PO PRN (04:41)
[2019-04-12] MEDS: KETOROLAC 30 MG/1 ML IVPush PRN (04:41)
[2019-04-12] MEDS: CARVEDILOL 6.25 MG TABLET PO SCH (05:42)
[2019-04-12] MEDS: SODIUM CHLORIDE 0.9% 1,000 ML IV SCH (05:42)
[2019-04-12] MEDS: OMEPRAZOLE 20 MG CAPSULE.DR PO SCH (05:42)
[2019-04-12 07:21] VITALS: BP 127/80
[2019-04-12] MEDS: AMOXICILLIN 500 MG CAPSULE PO SCH (07:54)
[2019-04-12] MEDS: POTASSIUM CHLORIDE 10 MEQ TABLET.ER PO SCH (07:55)
[2019-04-12] MEDS: DOXYCYCLINE 100MG CAP PO SCH (07:55)
[2019-04-12] MEDS: ESTRADIOL 1 MG TABLET PO SCH (07:56)
[2019-04-12] MEDS: LACTOBACILLUS CHEW TABLET PO SCH (07:56)
[2019-04-12] MEDS: INSULIN GLARGINE 100 UNITS/ML, PEN SQ-INSULIN SCH (07:59)
[2019-04-12] MEDS: INSULIN LISPRO 100 UNITS/ML, PEN SQ-INSULIN SCH ×2 (07:59→10:45)
[2019-04-12] MEDS ORDERED: METF850T PO (10:08)
[2019-04-12] MEDS ORDERED: CARV6.2512 PO (10:08)
[2019-04-12] MEDS ORDERED: ACID1TAB7 PO (10:08)
[2019-04-12] MEDS ORDERED: AMOX-291 PO (10:08)
[2019-04-12] MEDS ORDERED: GUAI5SYR PO (10:08)
[2019-04-12] MEDS ORDERED: DOXY100C2 PO (10:08)
[2019-04-12 10:50] VITALS: BP 124/83
[2019-04-12] MEDS ORDERED: metFORMIN 850 MG TABLET PO SCH (17:00)
== END 2019-04-12 12:10 | disposition home or self-care (01) | DRG 871 ==
LOC: ED 12:31 → EDIP 15:45 → 4NOR 17:07 → DCLOUNGE 04-12 11:57
PROVIDERS: ADMIT Internal Medicine; ATTEND Internal Medicine
DX: A41.9 Sepsis, unspecified organism (principal); J15.9 Unspecified bacterial pneumonia; J96.01 Acute respiratory failure with hypoxia; Z68.42 Body mass index [BMI] 45.0-49.9, adult; E11.65 Type 2 diabetes mellitus with hyperglycemia; E66.01 Morbid (severe) obesity due to excess calories; E78.5 Hyperlipidemia, unspecified; G47.30 Sleep apnea, unspecified; H81.09 Meniere's disease, unspecified ear; I10 Essential (primary) hypertension; J45.909 Unspecified asthma, uncomplicated; M19.90 Unspecified osteoarthritis, unspecified site; H92.03 Otalgia, bilateral; K21.9 Gastro-esophageal reflux disease without esophagitis; K76.0 Fatty (change of) liver, not elsewhere classified; R04.0 Epistaxis; Z79.4 Long term (current) use of insulin; Z79.890 Hormone replacement therapy; Z90.710 Acquired absence of both cervix and uterus; Z88.8 Allergy status to other drugs, medicaments and biological substances
CPT/HCPCS: 36415; 36600; 71275; 80048; 80053; 82803; 82962; 83036; 83605; 84145; 84703; 85025; 85379; 87040; 93005; 96372; 99285; G0378; J0456; J0696; J1644; J1815; J1885; Q9967; J7030; J7040; J7050

== ENCOUNTER → 2019-12-08 | Outpatient (CLI) | payer OTHER ==
[~2019-12-08] MED LIST changes: +ACID1TAB7 PO; +AMOX-291 PO; +CARV6.2512 PO; +DOXY100C2 PO; +ESTRODIAL PO; +GUAI5SYR PO; +HYDROCHLOROTH12.5 MG PO; +INSU100I11 SQ; +INSU100I13 SQ; +METF850T PO; +OMEP40CA42 PO; -OMEP40CA6 PO; +PIOG30TA4 PO; +POTASSIUM PO; +SEMA1PEN SQ; +jardiance PO
[2019-12-08 16:33] LABS: ALANINE AMINOTRANSFERASE 27 U/L (12-78); ALBUMIN 3.6 g/dL (3.4-5.0); ANION GAP 8 mmol/L (5-15); CALCIUM 8.2 mg/dL (8.5-10.1); CHLORIDE 106 mmol/L (98-107); CREATININE 0.84 mg/dL (0.55-1.02)
[2019-12-08 16:35] LABS: ALKALINE PHOSPHATASE 76 U/L (45-117); BILIRUBIN,TOTAL 0.4 mg/dL (0.2-1.0); TOTAL PROTEIN 7.1 g/dL (6.4-8.2)
== END | disposition home or self-care (01) ==
LOC: STAR 15:12
PROVIDERS: ATTEND Plastic Surgery
DX: Z01.818 Encounter for other preprocedural examination (principal); C44.1122 Basal cell carcinoma of skin of right lower eyelid, including canthus
CPT/HCPCS: 36415; 80053

== ENCOUNTER 2019-12-09 15:45 | Outpatient (CLI) | payer OTHER | END 2019-12-09 23:59 | disposition home or self-care (01) | LOC: STAR 15:45 | PROVIDERS: ATTEND Plastic Surgery | DX: Z01.818 Encounter for other preprocedural examination (principal) | CPT/HCPCS: 93005 ==

== ENCOUNTER 2019-12-18 06:59 | Day surgery (SDC) | payer OTHER ==
[~2019-12-18] VITALS: Ht 168.9 cm; Wt 113.6 kg
[~2019-12-18 06:59] MED LIST changes: -PIOG30TA4 PO; +PIOG30TA68 PO
[2019-12-18] MEDS ORDERED: LACTATED RINGERS 1,000 ML IV SCH (07:47)
[2019-12-18] MEDS ORDERED: ACETAMINOPHEN 500 MG TABLET PO ONE (08:00)
[2019-12-18] MEDS ORDERED: MIDAZOLAM 1 MG/ML, 2ML ONE (08:47)
[2019-12-18] MEDS ORDERED: FENTANYL PF 100 MCG/2ML ONE (08:47)
[2019-12-18] MEDS ORDERED: BUPIVACAINE/PF-EPI 0.25% 1:200K ONE (09:54)
[2019-12-18] MEDS ORDERED: BALANCED SALT OPHTH IRRIG SOLN 18ML ONE (10:06)
[2019-12-18] MEDS ORDERED: OXYcodone 5 MG/5 ML ORAL.SOL UDC ONE (11:34)
[2019-12-18] MEDS ORDERED: MEPERIDINE/PF 25MG/ML,1ML ONE (11:34)
[2019-12-18] MEDS ORDERED: MEPERIDINE/PF 25MG/ML,1ML IVPush PRN (12:00)
[2019-12-18] MEDS ORDERED: FENTANYL PF 100 MCG/2ML IV PRN (12:00)
[2019-12-18] MEDS ORDERED: OXYcodone 5 MG/5 ML ORAL.SOL UDC PO PRN (12:00)
[2019-12-18] MEDS ORDERED: hydrALAzine 20 MG/ML, 1ML IV PRN (12:00)
[2019-12-18] MEDS ORDERED: ONDANSETRON 2MG/ML, 2ML IV PRN (12:00)
[2019-12-18] MEDS ORDERED: HYDROmorphone 2 MG/ML, 1ML IVPush PRN (12:00)
[2019-12-18] MEDS ORDERED: LORazepam 2 MG/ML, 1ML IVPush PRN (12:00)
[2019-12-18] MEDS ORDERED: CEFAZOLIN 1,000 MG ONE (14:21)
[2019-12-18] MEDS ORDERED: DEXAMETHASONE 4 MG/ML, 1ML ONE (14:21)
[2019-12-18] MEDS ORDERED: ONDANSETRON 2MG/ML, 2ML ONE (14:21)
[2019-12-18] MEDS ORDERED: PROPOFOL 10 MG/ML, 20ML ONE (14:21)
[2019-12-18] MEDS ORDERED: ROCURONIUM 10MG/ML,5ML ONE (14:21)
[2019-12-18] MEDS ORDERED: SUGAMMADEX 200 MG/2 ML IVPush ONE (14:21)
== END 2019-12-18 14:35 | disposition home or self-care (01) ==
LOC: OUT 06:59
PROVIDERS: ATTEND Plastic Surgery
DX: C44.1122 Basal cell carcinoma of skin of right lower eyelid, including canthus (principal); H02.824 Cysts of left upper eyelid; D22.5 Melanocytic nevi of trunk; E11.9 Type 2 diabetes mellitus without complications; E66.01 Morbid (severe) obesity due to excess calories; J45.909 Unspecified asthma, uncomplicated; Z98.891 History of uterine scar from previous surgery; Z98.890 Other specified postprocedural states; Z79.84 Long term (current) use of oral hypoglycemic drugs; Z68.39 Body mass index [BMI] 39.0-39.9, adult; Z87.891 Personal history of nicotine dependence
CPT/HCPCS: 11440; 14000; 82962; 88305; 88331; J0690; J1100; J2175; J2250; J2405; J2704; J3010; J7120

== ENCOUNTER 2020-08-01 19:25 | Emergency (ER) | payer OTHER ==
[~2020-08-01] VITALS: Ht 167.6 cm; Wt 120.0 kg
[2020-08-01] MEDS ORDERED: SODIUM CHLORIDE 0.9% 1,000ML IVBOLUS ONE (20:00)
[2020-08-01] MEDS ORDERED: SODIUM CHLORIDE FLUSH 10ML SYR IVF ONE (20:00)
[2020-08-01] MEDS ORDERED: ONDANSETRON ODT 8 MG PO ONE (20:00)
[2020-08-01] MEDS ORDERED: MECLIZINE CHEWABLE 25 MG TAB PO ONE (20:00)
[2020-08-01] MEDS ORDERED: MECLIZINE CHEWABLE 25 MG TAB ONE ×2 (20:08→20:17)
[2020-08-01] MEDS ORDERED: ONDANSETRON ODT 8 MG ONE (20:08)
--- NOTE | 2020-08-01 20:19 | NUR ---
PT WITH HX OF MENIERES BUT NO EXPERIENCING ANY SX FOR SEVERAL YRS. DIZZINESS AT 1920 TONIGHT, INCREASES WHEN MOVES HEAD OR BODY. POS NYSTAGMUS WITH LATERAL EYE MOVEMENTS, SM PUPILS BUT REACTIVE. REPORTS FEELING NAUSEATED BUT NO EMESIS YET. NO HEADACHE, NO CP, NO SOB. IV STARTED BLOODS DRAWN AND SENT. RAILS UP, CALL LIGHT IN REACH. ON MONITOR NSR NO ECTOPY. AT BEDSIDE. WILL CONTINUE TO MONITOR. AIDET PROVIDED.
[2020-08-01 20:45] LABS: BASOPHILS # (AUTO) 0.03 x10^3/uL (0-0.1); BASOPHILS % (AUTO) 0 % (0-1); EOSINOPHILS # (AUTO) 0.14 x10^3/uL (0-0.4); EOSINOPHILS % (AUTO) 2 % (1-7); LYMPHOCYTES # (AUTO) 2.59 x10^3/uL (1-3.4); LYMPHOCYTES % (AUTO) 33 % (22-44); MD NO; MEAN CORPUSCULAR HEMOGLOBIN 30.1 pg (27.0-34.8); MEAN CORPUSCULAR VOLUME 91.2 fL (80-100); MEAN PLATELET VOLUME 8.1 fL (7.4-10.4); MONOCYTES # (AUTO) 0.64 x10^3/uL (0.2-0.8); MONOCYTES % (AUTO) 8 % (2-9); NEUTROPHILS # (AUTO) 4.54 x10^3/uL (1.8-6.8); NEUTROPHILS % (AUTO) 57 % (42-75); PLATELET COUNT 272 x10^3/uL (130-400); RED BLOOD COUNT 5.19 x10^6/uL (3.82-5.3); RED CELL DISTRIBUTION WIDTH 13.6 % (9.6-15.2)
[2020-08-01 20:54] LABS: ALBUMIN 3.6 g/dL (3.4-5.0); ANION GAP 9 mmol/L (5-15); CALCIUM 9.3 mg/dL (8.5-10.1); CHLORIDE 105 mmol/L (98-107); CREATININE 0.84 mg/dL (0.55-1.02)
[2020-08-01 21:11] VITALS: BP 124/69
--- NOTE | 2020-08-01 21:12 | NUR ---
PT SLEEPING, RR EQUAL AND UNLABORED. REPORTS STILL FEELING DIZZY WHEN MOVES NO NAUSEATED FEELING. VSS. WILL CONTINUE TO MONITOR.
[2020-08-01] MEDS ORDERED: POTASSIUM CHLORIDE 20 MEQ TAB.ER.PRT ONE (21:24)
--- NOTE | 2020-08-01 21:24 | NUR ---
UP TO BATHROOM, REPORTS DECREASE IN DIZZINESS SINCE MEDS. AMBULATES STEADY CLEAR YELLOW URINE. MEDICATED PER ORDER FOR [facility].
[2020-08-01] MEDS ORDERED: POTASSIUM CHLORIDE 20 MEQ TAB.ER.PRT PO ONE (21:30)
== END 2020-08-01 22:11 | disposition home or self-care (01) ==
LOC: ED 22:00
DX: R42 Dizziness and giddiness (principal); E87.6 Hypokalemia; R11.0 Nausea; R94.31 Abnormal electrocardiogram [ECG] [EKG]; E11.9 Type 2 diabetes mellitus without complications; J45.909 Unspecified asthma, uncomplicated; I10 Essential (primary) hypertension; Z87.891 Personal history of nicotine dependence
CPT/HCPCS: 36415; 80048; 82040; 85025; 93005; 96360; 99285; J7030; Q0162

== ENCOUNTER 2021-03-07 11:17 | Emergency (ER) | payer OTHER ==
[~2021-03-07] VITALS: Ht 167.6 cm; Wt 127.6 kg
[~2021-03-07 11:17] MED LIST changes: -OXYC5TAB3 PO; +OXYC5TAB98 PO
--- NOTE | 2021-03-07 11:47 | NUR ---
PT CAME IN CO SEVERE RUQ ABD PAIN THAT "COMES AND GOES AND GOT WORSE AFTER I ATE SOME BROTH THIS MORNING". PT REPORTS SHE STILL HAS HER GALLBLADDER. PT ALSO REPORTS "LIGHT COLORED STOOL". PT RESTING IN GURNEY. UA PROVIDED. PROVIDER BEDSIDE FOR ASSESMENT
[2021-03-07] MEDS ORDERED: ONDANSETRON 2MG/ML, 2ML ONE (11:50)
[2021-03-07] MEDS ORDERED: MORPHINE SULFATE 4 MG/ML, 1ML ONE ×2 (11:50→13:29)
[2021-03-07] MEDS: MORPHINE SULFATE 4 MG/ML, 1ML IVPush PRN ×2 (11:57→13:31)
[2021-03-07] MEDS ORDERED: ONDANSETRON 2MG/ML, 2ML IVPush ONE (12:00)
[2021-03-07] MEDS ORDERED: SODIUM CHLORIDE FLUSH 10ML SYR IVF ONE (12:00)
[2021-03-07 12:14] LABS: BASOPHILS % (AUTO) 0 % (0-1); EOSINOPHILS % (AUTO) 1 % (1-7); LYMPHOCYTES % (AUTO) 14 % (22-44); MEAN CORPUSCULAR HEMOGLOBIN 29.9 pg (27.0-34.8); MEAN CORPUSCULAR HGB CONC 33.1 g/dL (32.4-35.8); MEAN PLATELET VOLUME 7.7 fL (7.4-10.4); MONOCYTES % (AUTO) 6 % (2-9); NEUTROPHILS % (AUTO) 78 % (42-75); PLATELET COUNT 314 x10^3/uL (130-400); RED CELL DISTRIBUTION WIDTH 13.4 % (9.6-15.2)
[2021-03-07 12:16] LABS: MICROSCOPIC NOT IND
[2021-03-07 12:21] LABS: ALANINE AMINOTRANSFERASE 31 U/L (12-78); ALBUMIN 3.6 g/dL (3.4-5.0); ANION GAP 5 mmol/L (5-15); CALCIUM 8.7 mg/dL (8.5-10.1); CHLORIDE 109 mmol/L (98-107); CREATININE 0.73 mg/dL (0.55-1.02)
[2021-03-07 12:23] LABS: ALKALINE PHOSPHATASE 48 U/L (45-117); BILIRUBIN,TOTAL 0.5 mg/dL (0.2-1.0)
--- NOTE | 2021-03-07 12:34 | NUR ---
US IN WITH PT AT THIS TIME
[2021-03-07 12:36] LABS: MD SCAN
--- NOTE | 2021-03-07 13:07 | NUR ---
REPORT FROM ENEIDA. ASSUMING CARE OF PATIENT. DR. STEPHEN AT BEDSIDE TO DISSCUSS RESULTS. PT W/ C/O ABDOMINAL PAIN. VSS.
--- NOTE | 2021-03-07 13:10 | NUR ---
PT STATES SHE CURRENTLY IS NOT HAVING PAIN. IS UPSET AT TESTS HAVEN'T SHOWN REASON SHE IS HAVING PAIN.
--- NOTE | 2021-03-07 13:33 | NUR ---
BREAK RN: PT CRYING IN ROOM, STATES, "THE PAIN IS IN WAVES", REQUESTED MORPHINE, MEDICATED PER MAR, PT TOLERATED WELL. AT BS, PT VERBALIZED NO OTHER NEEDS AT THIS TIME.
--- NOTE | 2021-03-07 13:44 | NUR ---
BREAK RN: PT TO CT SCAN
[2021-03-07] MEDS ORDERED: OMNIPAQUE 350 MG/ML, 100ML BOTTLE ONE (13:57)
[2021-03-07 14:17] VITALS: BP 107/54
--- NOTE | 2021-03-07 14:18 | NUR ---
PT ASLEEP WITH EVEN AND UNLABORED RESPIRATIONS. VSS. ROSE AT BEDSIDE.
--- NOTE | 2021-03-07 14:27 | NUR ---
THERON VALDES TO BEDSIDE TO DISCUSS RESULTS.
--- NOTE | 2021-03-07 15:00 | NUR ---
Patient/Caregiver given discharge instructions and they have confirmed that they understand the instructions. Patient ambulatory with steady gait.
== END 2021-03-07 15:01 | disposition home or self-care (01) ==
LOC: ED 13:26
DX: K76.0 Fatty (change of) liver, not elsewhere classified (principal); R10.11 Right upper quadrant pain; E78.00 Pure hypercholesterolemia, unspecified; K21.9 Gastro-esophageal reflux disease without esophagitis; E11.9 Type 2 diabetes mellitus without complications; J45.909 Unspecified asthma, uncomplicated; I10 Essential (primary) hypertension
CPT/HCPCS: 36415; 74177; 76700; 80053; 81003; 83690; 85025; 96374; 96375; 96376; 99285; J2270; J2405; Q9967

== ENCOUNTER 2021-05-19 17:54 | Emergency (ER) | payer OTHER ==
[~2021-05-19] VITALS: Ht 167.6 cm; Wt 124.6 kg
[~2021-05-19 17:54] MED LIST changes: -OMEP40CA42 PO; +OMEP40CA8 PO; -VANC1VIA3 PO; +VANC1VIA36 PO
--- NOTE | 2021-05-19 20:19 | NUR ---
PT C/O OF EPIGASTRIC AND RUQ PAIN THAT RADIATES TO THE MIDDLE OF HER BACK PT REPORTS NAUSEA AND VOMITTING BILE. ATTACHED TO MONITORS. VSS. COMPLAINING OF PAIN. BED IN LOW POSITION, RAILS ENGAGED, CALL LIGHT ON LAP. WCTM
[2021-05-19] MEDS ORDERED: MORPHINE SULFATE 4 MG/ML, 1ML IVPush PRN (20:30)
[2021-05-19] MEDS ORDERED: ONDANSETRON 2MG/ML, 2ML IVPush ONE (20:30)
[2021-05-19] MEDS ORDERED: SODIUM CHLORIDE FLUSH 10ML SYR IVF ONE (20:30)
[2021-05-19] MEDS ORDERED: MAALOX/HYOSCYAMINE/LIDOCAINE 45 ML BTL PO ONE (20:30)
--- NOTE | 2021-05-19 20:32 | NUR ---
ATTACHED TO CARD/SP02/BP MONITORS. PT CHANGED INTO GOWN.
[2021-05-19] MEDS ORDERED: MORPHINE SULFATE 4 MG/ML, 1ML ONE (20:34)
[2021-05-19] MEDS ORDERED: ONDANSETRON 2MG/ML, 2ML ONE (20:34)
[2021-05-19] MEDS ORDERED: MAALOX/HYOSCYAMINE/LIDOCAINE 45 ML BTL ONE (20:35)
[2021-05-19 20:54] LABS: BASOPHILS % (AUTO) 1 % (0-1); EOSINOPHILS % (AUTO) 1 % (1-7); LYMPHOCYTES % (AUTO) 35 % (22-44); MEAN CORPUSCULAR HEMOGLOBIN 30.5 pg (27.0-34.8); MEAN CORPUSCULAR HGB CONC 33.9 g/dL (32.4-35.8); MEAN PLATELET VOLUME 8.1 fL (7.4-10.4); MONOCYTES % (AUTO) 8 % (2-9); NEUTROPHILS % (AUTO) 55 % (42-75); PLATELET COUNT 272 x10^3/uL (130-400); RED CELL DISTRIBUTION WIDTH 13.9 % (9.6-15.2)
[2021-05-19 21:07] LABS: ALANINE AMINOTRANSFERASE 33 U/L (12-78); ALBUMIN 3.6 g/dL (3.4-5.0); ANION GAP 7 mmol/L (5-15); CALCIUM 8.8 mg/dL (8.5-10.1); CHLORIDE 102 mmol/L (98-107); CREATININE 0.72 mg/dL (0.55-1.02)
[2021-05-19 21:11] LABS: ALKALINE PHOSPHATASE 58 U/L (45-117); BILIRUBIN,TOTAL 0.5 mg/dL (0.2-1.0); TOTAL PROTEIN 7.1 g/dL (6.4-8.2); TROPONIN I < 0.015 ng/mL (0.000-0.045)
--- NOTE | 2021-05-19 21:49 | NUR ---
Patient is resting comfortably in bed. Bed in lowest, rails engaged, call light on lap. Vital Signs within normal limits. WCTM. NEWMAN AT BEDSIDE.
[2021-05-19 22:06] VITALS: BP 136/53
== END 2021-05-19 22:22 | disposition home or self-care (01) ==
LOC: ED 20:36
DX: R10.13 Epigastric pain (principal); R07.2 Precordial pain; R10.11 Right upper quadrant pain; R94.31 Abnormal electrocardiogram [ECG] [EKG]; I10 Essential (primary) hypertension; E11.9 Type 2 diabetes mellitus without complications; K21.9 Gastro-esophageal reflux disease without esophagitis; E78.00 Pure hypercholesterolemia, unspecified; Z90.710 Acquired absence of both cervix and uterus; Z87.891 Personal history of nicotine dependence
CPT/HCPCS: 36415; 71045; 80053; 83690; 84484; 85025; 93005; 96374; 96375; 99285; J2270; J2405